=== PATIENT | female | born 1935 | race African-American/Black ===

== ENCOUNTER 2023-11-02 14:34 | Emergency (ER) | payer MEDICARE, OTHER ==
[~2023-11-02] VITALS: Ht 162.6 cm; Wt 61.0 kg
[~2023-11-02 14:34] MED LIST: AMLODIPINE; WARFARIN
[2023-11-02 14:46] VITALS: BP 138/83; PULSE 54; RESP 18; TEMP 98.4; O2SAT 96
[2023-11-02] MEDS ORDERED: SODIUM CHLORIDE 0.9% 1,000 ML IV ONE (15:15)
[2023-11-02 16:16] LABS: BASOPHILS % 0.9 % (0.0-2.0); DIFFERENTIAL COMMENT 0; HEMATOCRIT. 36.1 % (36.0-48.0); HEMOGLOBIN. 11.5 g/dL (12.0-16.0); LYMPHOCYTES % 38.3 % (20.0-50.0); MEAN CORPUSCULAR HEMOGLOBIN 24.8 pg (28.0-32.0); MEAN CORPUSCULAR HGB CONC 31.9 g/dL (31.0-37.0); MEAN CORPUSCULAR VOLUME 77.8 fL (81.0-99.0); MONOCYTES % 10.3 % (2.0-8.0); NEUTROPHILS % 47.5 % (40.0-76.0); PLATELET 194 x1000/uL (130-400); RED BLOOD CELL COUNT 4.64 mill/uL (4.2-5.4); RED CELL DISTRIBUTION WIDTH 16.6 % (11.6-14.6); WHITE BLOOD COUNT 3.4 x1000/uL (4.5-11.0)
[2023-11-02 17:35] LABS: ALANINE AMINOTRANSFERASE 13 IU/L (10-49); ASPARTATE AMINOTRANSFERASE 58 IU/L (<34); BILIRUBIN TOTAL 0.6 mg/dL (0.1-1.0); CARBON DIOXIDE 20 mEq/L (21-32); CREATININE 0.8 mg/dL (0.6-1.0); GLUCOSE 78 mg/dL (70-105); PROTEIN TOTAL 7.8 g/dL (6.0-8.3); UREA NITROGEN BLOOD 10 mg/dL (9-23)
[2023-11-02 17:48] LABS: TROPONIN I HIGH SENSITIVITY 41 ng/L (3.0-34)
[2023-11-02 18:17] LABS: CHLORIDE 106 mEq/L (98-107); POTASSIUM 4.9 mEq/L (3.5-5.1); SODIUM 137 mEq/L (136-145)
== END 2023-11-02 15:19 | disposition left against medical advice (07) ==
LOC: ER 14:34 → EDBEDREQ 15:14 → ER 15:19
DX: I48.91 Unspecified atrial fibrillation (principal); R56.9 Unspecified convulsions
CPT/HCPCS: 99285; 96360; 70450; 71045; 80053; 83605; 85025; 84484; 36415; 93005; J7030